=== PATIENT | male | born 1995 | race African-American/Black ===

== ENCOUNTER → 2017-09-29 | Outpatient (CLI) | payer BC ==
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
== END ==
LOC: RAD 07:35
PROVIDERS: ATTEND Orthopaedic Surgery
DX: M23.261 Derangement of other lateral meniscus due to old tear or injury, right knee (principal); Y93.67 Activity, basketball
CPT/HCPCS: 73721

== ENCOUNTER 2019-01-15 16:15 | Observation (INO) | payer OTHER, BC ==
[~2019-01-15] VITALS: Ht 182.9 cm; Wt 114.8 kg
[~2019-01-15 16:15] MED LIST: fentaNYL INJECTION 100 MCG/2 ML AMP ONE
[2019-01-15] MEDS ORDERED: fentaNYL INJECTION 100 MCG/2 ML AMP IVP ONE ×2 (16:25→16:40)
[2019-01-15] MEDS ORDERED: fentaNYL INJECTION 100 MCG/2 ML AMP ONE (16:30)
[2019-01-15] MEDS ORDERED: LORazepam INJ 2 MG/ML (ATIVAN) VIAL ONE (16:30)
[2019-01-15 16:40] LABS: HEMOGLOBIN 15.3 G/DL (13.3-17.7); MEAN PLATELET VOLUME 9.4 FL (7.4-10.4); RED CELL DISTRIBUTION WIDTH 12.4 % (10.0-14.5); WHITE BLOOD COUNT 10.6 10^3/uL (4.3-11.0)
[2019-01-15] MEDS ORDERED: LORazepam INJ 2 MG/ML (ATIVAN) VIAL IVP ONE (16:40)
[2019-01-15] MEDS ORDERED: NS 100 ML (IVPB) BAG IV ONE (16:45)
[2019-01-15] MEDS ORDERED: HOLD METFORMIN - RECEIVED CONTRAST 20 ML VIAL IV SCH (16:45)
[2019-01-15] MEDS ORDERED: IOHEXOL 350 MG/ML 100 ML (OMNIPAQUE 350) VIAL IV ONE (16:45)
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
[2019-01-15] MEDS ORDERED: TETANUS,DIPTH,PERTUSS P/F (BOOSTRIX) 0.5 ML VIAL IM ONE (17:30)
[2019-01-15] MEDS ORDERED: ACETAMINOPHEN 325 MG TABLET PO PRN (17:30)
[2019-01-15] MEDS ORDERED: ceFAZolin 2 GM/50 ML NS 50 ML IV ONE (17:30)
[2019-01-15] MEDS ORDERED: morphine INJ 10 MG/ML 1ML (SYR OR VIAL) IVP PRN ×2 (17:30)
[2019-01-15] MEDS ORDERED: ONDANSETRON 4 MG/2 ML (SDV) Z0FRAN IVP PRN (17:30)
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
[2019-01-15 17:56] LABS: FIBRIN DEGRADATION PRODUCTS 0.92 UG/ML (0.00-0.49); PROTHROMBIN TIME PATIENT 13.8 SEC (12.2-14.7)
[2019-01-15 18:01] LABS: ALANINE AMINOTRANSFERASE 14 U/L (0-55); ALBUMIN 4.3 GM/DL (3.2-4.5); ALKALINE PHOSPHATASE 47 U/L (40-136); BILIRUBIN,DIRECT 0.2 MG/DL (0.0-0.3); BILIRUBIN,INDIRECT 0.4 MG/DL; BILIRUBIN,TOTAL 0.6 MG/DL (0.1-1.0); BUN/CREATININE RATIO 10; CALCIUM 9.8 MG/DL (8.5-10.1); CARBON DIOXIDE 23 MMOL/L (21-32); CHLORIDE 106 MMOL/L (98-107); CREATININE SERUM 1.19 MG/DL (0.60-1.30); GFR ESTIMATED > 60; GLUCOSE 108 MG/DL (70-105); MAGNESIUM 1.7 MG/DL (1.6-2.4); PHOSPHORUS 1.7 MG/DL (2.3-4.7); POTASSIUM 3.5 MMOL/L (3.6-5.0); SODIUM 139 MMOL/L (135-145); TOTAL PROTEIN 7.6 GM/DL (6.4-8.2)
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
[2019-01-15] MEDS ORDERED: ceFAZolin 2 GM/50 ML NS 50 ML IV SCH (18:30)
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
[2019-01-15 20:08] VITALS: BP 155/91
[2019-01-15] MEDS: HYDROcodone/APAP 7.5 MG/325 MG (LORTAB, LORCET PLUS) TABLET PO PRN (20:57)
[2019-01-15 23:51] VITALS: BP 138/85
[2019-01-16] MEDS: ceFAZolin 2 GM/50 ML NS 50 ML IV SCH ×2 (02:25→11:24)
[2019-01-16] MEDS: HYDROcodone/APAP 7.5 MG/325 MG (LORTAB, LORCET PLUS) TABLET PO PRN ×2 (02:28→08:56)
[2019-01-16 03:50] VITALS: BP 111/74
[2019-01-16 07:35] VITALS: BP 126/76
--- NOTE | 2019-01-16 09:16 | NUR ---
PATIENT STATES HE DOES NOT TAKE ANY MEDICATIONS AT HOME.
[2019-01-16 11:52] VITALS: BP 127/74
--- NOTE | 2019-01-16 13:25 | NUR ---
Pastoral care visit.
[2019-01-16] MEDS ORDERED: CEPH-507 PO (15:22)
[2019-01-16] MEDS ORDERED: HYDR-34 PO (15:22)
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
== END 2019-01-16 15:13 | disposition home or self-care (01) ==
LOC: EDUNIT# 16:15 → ER 16:16 → UNDOADMIN 18:11 → 4TH 18:11 → UNDODISIN 01-16 16:20
PROVIDERS: ADMIT Surgery; ATTEND Surgery
DX: S20.311A Abrasion of right front wall of thorax, initial encounter (principal); S70.311A Abrasion, right thigh, initial encounter; S70.312A Abrasion, left thigh, initial encounter; S60.511A Abrasion of right hand, initial encounter; S60.512A Abrasion of left hand, initial encounter; R10.32 Left lower quadrant pain; F43.0 Acute stress reaction; R06.4 Hyperventilation; R40.2410 Glasgow coma scale score 13-15, unspecified time; J30.2 Other seasonal allergic rhinitis; F17.210 Nicotine dependence, cigarettes, uncomplicated; V28.4XXA Motorcycle driver injured in noncollision transport accident in traffic accident, initial encounter
CPT/HCPCS: 36415; 70450; 71045; 71260; 72125; 72128; 72131; 74177; 80048; 80076; 80320; 83605; 83735; 84100; 84484; 85027; 85379; 85384; 85610; 85730; 86850; 86900; 86901; 90471; 90715; 93041; 94664; 96365; 96375; G0378